=== PATIENT | female | born 1980 | race Caucasian/White ===

== ENCOUNTER 2018-01-03 10:30 | Emergency (ER) | payer OTHER, SELFPAY ==
[2018-01-03 10:32] VITALS: BP 110/69; PULSE 59; RESP 18; TEMP 36.5; O2SAT 100; BMI 16.7
--- NOTE | 2018-01-03 10:40 | ED.VISSUMM ---
- ER Visit Summary Date of Service: 01/03/18 Chief Complaint: Vomiting History of Present Illness: The patient is a [address] Acevedo and Dr. Colon. She reports that she has a history of gastroparesis, a gastric pacemaker, and began a trial of Propulsid 8 months ago. States that she has episodes of vomiting despite this. This episode began yesterday. She is vomited approximately 15 times. No blood or emesis. No abdominal pain. Her last bowel was yesterday. She has had no diarrhea, melena, or hematochezia. No dysuria or frequency. She is on her menstrual period now. Physical Examination: Vitals: Stable. Afebrile. General: Well-nourished and well-developed. Head: Normocephalic atraumatic. Neck: Supple, no lymphadenopathy. No JVD. Nontender. Cardiovascular: Regular rate and rhythm. No murmurs. Respiratory: No respiratory distress. Clear to auscultation bilaterally. Abdominal: Soft, nontender, nondistended, normal bowel sounds. No guarding, rebound, or peritoneal signs. Back: Nontender. Extremities: Nontender, no edema. Skin: Normal color, no rash. Neurologic: Alert and oriented ?3. Cranial nerves II through XII are intact. Normal strength and sensation. Psych: Normal affect. Test Results: Chem-7 is marked for potassium of 3.0, CO2 33, glucose of 121. Emergency Department Course and Treatment: Patient had an IV placed. She was given 2 L normal saline. We discussed different options for antiemetics and she is opted to not have any of those at this time. She did ask for Tigan which we do not have available at this hospital. Treatment Plan: Patient be discharged instructions to continue her Propulsid and Tigan. Follow-up with her general foreman in 1-2 days if not improving. Return to the emergency department for any worsening symptoms. Disposition: To home in improved and stable condition. Impression: 1. Vomiting. 2. History of gastroparesis. This note was generated with [employer] software. It may contain incorrect words, spelling, and punctuation that were not noted in review of the chart prior to signing ED Disposition - Plan for ED Patient: Chief Complaint: Nausea/Vomiting Instructions: Gastroparesis Prescriptions: Potassium Chloride [K-Dur] 20 meq PO BID #14 tablet Referrals: Doctor,Your [STAFF PHYSICIAN] - 1-2 Days if not improving
--- NOTE | 2018-01-03 10:50 | ED.DCSUM_ITS ---
- ER Visit Summary Date of Service: 01/03/18 Chief Complaint: Vomiting History of Present Illness: The patient is a [address] Acevedo and Dr. Colon. She reports that she has a history of gastroparesis, a gastric pacemaker, and began a trial of Propulsid 8 months ago. States that she has episodes of vomiting despite this. This episode began yesterday. She is vomited approximately 15 times. No blood or emesis. No abdominal pain. Her last bowel was yesterday. She has had no diarrhea, melena, or hematochezia. No dysuria or frequency. She is on her menstrual period now. Physical Examination: Vitals: Stable. Afebrile. General: Well-nourished and well-developed. Head: Normocephalic atraumatic. Neck: Supple, no lymphadenopathy. No JVD. Nontender. Cardiovascular: Regular rate and rhythm. No murmurs. Respiratory: No respiratory distress. Clear to auscultation bilaterally. Abdominal: Soft, nontender, nondistended, normal bowel sounds. No guarding, rebound, or peritoneal signs. Back: Nontender. Extremities: Nontender, no edema. Skin: Normal color, no rash. Neurologic: Alert and oriented ?3. Cranial nerves II through XII are intact. Normal strength and sensation. Psych: Normal affect. Test Results: Chem-7 is marked for potassium of 3.0, CO2 33, glucose of 121. Emergency Department Course and Treatment: Patient had an IV placed. She was given 2 L normal saline. We discussed different options for antiemetics and she is opted to not have any of those at this time. She did ask for Tigan which we do not have available at this hospital. Treatment Plan: Patient be discharged instructions to continue her Propulsid and Tigan. 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 Return to the emergency department for any worsening symptoms. Disposition: To home in improved and stable condition. Impression: 1. Vomiting. 2. History of gastroparesis. This note was generated with [employer] software. It may contain incorrect words, spelling, and punctuation that were not noted in review of the chart prior to signing ED Disposition - Plan for ED Patient: Chief Complaint: Nausea/Vomiting Instructions: Gastroparesis Prescriptions: Potassium Chloride [K-Dur] 20 meq PO BID #14 tablet Referrals: Doctor,Your [STAFF PHYSICIAN] - 1-2 Days if not improving
[2018-01-03] MEDS: 0.9% Normal Saline 1,000 ML 999 ML IV ×2 (11:29→11:32)
[2018-01-03 12:12] LABS: Anion Gap 6 (5-15); BUN 18 mg/dL (7-18); BUN/Creat Ratio 20.4 RATIO (10-20); Calcium,Total 8.8 mg/dL (8.5-10.1); Chloride 99 mmol/L (98-107); Creatinine, Serum 0.88 mg/dL (0.55-1.02); EST Glomerular Filtration Rate 76 mL/min (>60); Est Glom Filt Rate - Afr Amer 92 mL/min (>60); Estimated Creatinine Clearance 67.61 ml/min; Glucose 121 mg/dL (74-106); Sodium Level 138 mmol/L (136-145)
[2018-01-03 13:52] VITALS: BP 111/58; PULSE 76; RESP 18; O2SAT 100
[2018-01-03 14:08] VITALS: BP 115/70; PULSE 65; RESP 14; O2SAT 96
== END 2018-01-03 14:12 | disposition home or self-care (01) ==
PROVIDERS: Emergency Provider Emergency Medicine
DX: K31.84 Gastroparesis (principal); Z97.8 Presence of other specified devices; G90.9 Disorder of the autonomic nervous system, unspecified; Z79.899 Other long term (current) drug therapy
CPT/HCPCS: 80048; 96360; 96361; 99284; J7030